=== PATIENT | female | born 1965 | race African-American/Black ===

== ENCOUNTER 2016-09-16 01:49 | Emergency (ER) | payer MEDICAID ==
[~2016-09-16] VITALS: Ht 157.5 cm; Wt 72.6 kg
[~2016-09-16 01:49] MED LIST: ASTHMA INHALER; FLUO90CA4 PO
[2016-09-16] MEDS: ALBUTEROL FS 2.5 MG/0.5 ML VIAL.NEB NEB ONE ×2 (02:07→02:49)
[2016-09-16] MEDS ORDERED: ALBUTEROL FS 2.5 MG/0.5 ML VIAL.NEB ONE (02:07)
[2016-09-16] MEDS ORDERED: DEXAMETHASONE SOD PHOSPHATE 10 MG/ML VIAL ONE (02:08)
[2016-09-16] MEDS: DEXAMETHASONE SOD PHOSPHATE 4 MG/ML VIAL IM ONE (02:16)
--- NOTE | 2016-09-16 02:16 | NUR ---
PT C/O SOB AND DIFFICULTY BREATHING X 3 DAYS, PT IS A/OX4, PT STATES SHE HAS BEEN TRYING TO DO BREATHING TREATMENTS AT HOME BUT NOT WORKING, PT ON MONITOR, RT AT BEDSIDE, PT IN GOWN, MADE AWARE WILL CONTINUE TO MONITOR.
[2016-09-16] MEDS ORDERED: ALBUTEROL FS 2.5 MG/3 ML VIAL.NEB ONE (02:52)
[2016-09-16 03:36] VITALS: BP 140/90
== END 2016-09-16 03:37 | disposition home or self-care (01) ==
LOC: ER 01:54
DX: J45.909 Unspecified asthma, uncomplicated (principal); F41.9 Anxiety disorder, unspecified; Z88.1 Allergy status to other antibiotic agents; F17.210 Nicotine dependence, cigarettes, uncomplicated
CPT/HCPCS: 94640 ×2; 99284; A4606; J1100; Z7610

== ENCOUNTER 2016-10-23 03:14 | Inpatient (IN) | payer MEDICAID ==
[2016-10-23] VITALS (34 sets, daily range): BP systolic 119–184; BP diastolic 60–107
[~2016-10-23] VITALS: Ht 157.5 cm; Wt 73.9 kg
--- NOTE | 2016-10-23 03:20 | NUR ---
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 Per patient she went to urgent care earlier today and was given with albuterol. Upon arriaval to er, patient is aaox4, dyspneic, tachypneic, wheezing heard on teofilo lungs, used of accessory muscles for breathing noted. Patient appears anxious. Maintained patent airway. Kept hob elevated. initiated comfort measures. Dr Lyn at bedside for eval.
[2016-10-23] MEDS ORDERED: DEXAMETHASONE SOD PHOSPHATE 10 MG/ML VIAL ONE (03:40)
[2016-10-23] MEDS ORDERED: ALBUTEROL FS 2.5 MG/3 ML VIAL.NEB ONE ×2 (03:43→04:25)
[2016-10-23 03:56] LABS: BASOPHILS % (AUTO) 0.5 % (0.0-2.0); EOSINOPHILS # (AUTO) 0.5 /CMM (0.0-0.7); EOSINOPHILS % (AUTO) 6.9 % (0.0-6.0); HEMATOCRIT 41 % (33-45); HEMOGLOBIN 13.3 g/dL (11.5-14.8); LYMPHOCYTES # (AUTO) 2.8 /CMM (0.8-4.8); LYMPHOCYTES % (AUTO) 36.3 % (20.0-44.0); MEAN CORPUSCULAR HEMOGLOBIN 29 PG (26.0-33.0); MEAN CORPUSCULAR HGB CONC 33 g/dl (31.0-36.0); MEAN CORPUSCULAR VOLUME 90 fL (82-100); MONOCYTES # (AUTO) 0.6 /CMM (0.1-1.30); MONOCYTES % (AUTO) 7.3 % (2.0-12.0); NEUTROPHILS # (AUTO) 3.7 /CMM (1.8-8.9); PLATELET COUNT (AUTO) 373 /CMM (150-450); RDW COEFFICIENT OF VARIATION 14.1 (11.5-15.0); RED BLOOD CELL COUNT(AUTO) 4.55 MIL/uL (4.0-5.2); WHITE BLOOD COUNT (AUTO) 7.6 K/uL (4.3-11.0)
[2016-10-23] MEDS ORDERED: ALBUTEROL FS 2.5 MG/3 ML VIAL.NEB CONTNEB ONE ×3 (04:00→04:30)
[2016-10-23] MEDS ORDERED: DEXAMETHASONE SOD PHOSPHATE 4 MG/ML VIAL IM ONE (04:00)
[2016-10-23 04:04] LABS: CALCIUM, SERUM 8.9 mg/dL (8.5-10.1); CREATININE 0.9 mg/dL (0.6-1.3); POTASSIUM 3.9 mmol/L (3.5-5.1)
[2016-10-23] MEDS ORDERED: IV SET PRIMARY 1 EA INFUS.SET MC ONE (04:23)
[2016-10-23] MEDS ORDERED: Magnesium 1GM/D5W 100ML PREMIX 200 ML IV ONE (04:23)
[2016-10-23] MEDS ORDERED: Magnesium 1 GM/2 ML VIAL IV ONE (04:30)
--- NOTE | 2016-10-23 04:35 | NUR ---
Magnesium 2gm infusing to right ac g18 per dr Lyn's order with ongoing albuterol nebulization.
--- NOTE | 2016-10-23 04:47 | NUR ---
Placed patient on rescue bipap by RT, settings as follows 15/5, fio2 30%, rate 14. Patient adore bibap well and reported to "breathing better."
[2016-10-23 04:49] LABS: ABG BASE EXCESS -2.4 mmol/L; ABG PCO2 43.4 mmHg (35.0-45.0); ABG PH 7.347 (7.350-7.450); ABG PO2 25.1 mmHg (75.0-100.0); ABG TOTAL HEMOGLOBIN 14.7 G/dL (12.0-16.0); MetHb 0.5 % (0.0-1.5); O2Hb 43.9 % (94.0-97.0); SITE, ABG Left Radial; VENT MODE, BG RA
[2016-10-23] MEDS ORDERED: FLUO20TA28 PO (04:54)
[2016-10-23] MEDS ORDERED: FLUT1DIS INH (04:55)
[2016-10-23] MEDS ORDERED: FLUT1BLS IH (04:55)
--- NOTE | 2016-10-23 05:02 | NUR ---
pt placed on bipap on noted setting. pt is awake and alert. breath sounds are audible wheezes. bipap is plugged in red outlet and alarms are set and audible. will continue to monitor Addendum: 10/23/16 at 0507 by YOLETTE FARR RT Amended: Links added.
[2016-10-23] MEDS ORDERED: ALBUTEROL FS 2.5 MG/0.5 ML VIAL.NEB NEB SCH (05:30)
[2016-10-23] MEDS ORDERED: IPRATROPIUM NEB FS 0.5 MG/2.5 ML AMPUL.NEB NEB SCH (05:30)
[2016-10-23] MEDS ORDERED: ONDANSETRON HCL/PF 4 MG/2 ML VIAL IVP PRN (05:30)
[2016-10-23] MEDS ORDERED: ACETAMINOPHEN 650 MG/SUPP.RECT RC PRN (05:30)
--- NOTE | 2016-10-23 05:43 | NUR ---
Report given to Joana CROFT for matias.
--- NOTE | 2016-10-23 05:45 | NUR ---
started a second IV access on the lac g18, with good blood return. Taped securely.
[2016-10-23] MEDS ORDERED: methylPREDNISolone SOD SUCC 125 MG/2ML VIAL ONE (05:46)
[2016-10-23] MEDS ORDERED: GUAIFENESIN LA 600 MG TABLET.SA PO ONE (05:46)
[2016-10-23] MEDS ORDERED: AZITHROMYCIN 500 MG VIAL ONE (05:51)
--- NOTE | 2016-10-23 05:56 | NUR ---
Transported patient to ICU rm 262 via als protocol, no incident noted.
[2016-10-23] MEDS ORDERED: IV SET PRIMARY PUMP SET 1 EA INFUS.SET MC ONE (05:59)
[2016-10-23] MEDS ORDERED: IV D5W 250 ML IV ONE (05:59)
[2016-10-23] MEDS: GUAIFENESIN LA 600 MG TABLET.SA PO SCH ×3 (06:03→20:53)
[2016-10-23] MEDS: methylPREDNISolone SOD SUCC 125 MG/2ML VIAL IV SCH ×4 (06:03→23:14)
[2016-10-23] MEDS: AZITHROMYCIN 500 MG in IV D5W 250 ML IV SCH (06:07)
--- NOTE | 2016-10-23 06:35 | NUR ---
RN:ICU: PT RECEIVED FROM ER FOR ASTHMA EXACERBATION. PER PT SHE VISITED THE URGENT CARE LAST NIGHT AND RECEIVED BREATHING TX, WITH RELIEVE BUT ONCE SHE RETURNED HOME CONTINUED TO HAVE INCREASING SOB. PER PT SHE HAS BEEN PREVIOUSLY INTUBATED FOR ASTHMA EXACERBATIONS AND AGREES TO INTUBATION IF SHE REQUIRES IT AGAIN DURING THIS HOSPITALIZATION. PT CURRENTLY TOLERATING BIPAP SETTINGS 15/5 RATE 14 FIO2 100%. PT HAS TWO PATENT IV SITE ON BILATERAL AC. PT RECEIVING AZITHROMYCIN PER MD ORDERS. PT CONTINUES TO HAVE SOB AND RHONCHI/WHEEZING THROUGHOUT LUNGS. PT EDUCATED REGARDING POC. DR CRABTREE AT THE BEDSIDE ASSESSING PT. WILL CONTINUE TO MONITOR CLOSELY.
--- NOTE | 2016-10-23 06:58 | NUR ---
RN:ICU: PT COMPLAINING OF LEFT ARM PAIN, DENIES CP OR PRESSURE. MD MADE AWARE OF PT CHANGE IN CONDITION. TROP AND EKG ORDERED. RT AT THE BEDSIDE PERFORMING EKG, LAB NOTIFIED TO DRAW TROP.
--- NOTE | 2016-10-23 07:47 | NUR ---
PT RECEIVED ON BIPAP WITH FF. SETTINGS: IPAP 15/ EPAP 5, RATE 14, FIO2 30%. AWAKE AND ALERT PT, PLACED INTO NASAL CANNULA @ 2LPM O2 FLOW. PT LOOKS COMFORTABLE ON NASAL CANNULA. Addendum: 10/23/16 at 0751 by LELO CRESPO RT Amended: Links added.
--- NOTE | 2016-10-23 08:00 | NUR ---
ICU/RN INITIAL NOTES,AM RECEIVED PT ON BIPAP WITH SETTINGS ORDERED BY MD, PT TAKEN OFF BIPAP AND PUT ON NASAL CANULA, TOLERATING WELL, MAINTAINING 02 SAT >95%, NO EXCESSIVE SOB NOTED. PT ALERT, AWAKE, ORIENTED TO PERSON PLACE AND TIME. FOLLOWS COMMANDS. PT ON TELE, SINUS. CURRENTLY NPO, WILL CONTINUE TO FURTHER ASSESS FOR ADDITIONAL DIET NEEDS. PIV'S PATENT AND INTACT, NO S/S IF INFECTION OR INFILTRATION NOTED. SKIN INTACT. ALL NEEDS WILL BE MET, SAFETY MEASURES TAKEN, BED IN LOW POSITION, AND SIDE RAILS UP, CALL LIGHT WITHIN REACH. WILL CONTINUE TO MONITOR.
[2016-10-23] MEDS ORDERED: FLUTICASONE/SALMETEROL DISKUS IH SCH (09:00)
[2016-10-23] MEDS: FLUOXETINE HCL 20 MG CAPSULE PO SCH (09:18)
[2016-10-23] MEDS: PANTOPRAZOLE 40 MG VIAL IV SCH (09:18)
[2016-10-23 09:22] LABS: ABG BASE EXCESS -2.5 mmol/L; ABG OXYGEN SATURATION 95.4 % (92.0-98.5); ABG PH 7.391 (7.350-7.450); ABG PO2 81.7 mmHg (75.0-100.0); AaDO2 74.3 mmHg; COHb 0.9 % (0.5-1.5); MetHb 0.8 % (0.0-1.5); O2Hb 93.8 % (94.0-97.0); SITE, ABG Left Radial; VENT MODE, BG NASAL CANNULA
--- NOTE | 2016-10-23 12:00 | NUR ---
ICU/RN: DR. ROJAS AT BEDSIDE. PT ASSESSED. DIET ORDERS RECEIVED WILL CARRY OUT.
[2016-10-23] MEDS: ALBUTEROL FS 2.5 MG/0.5 ML VIAL.NEB NEB SCH ×3 (15:40→23:19)
[2016-10-23] MEDS: IPRATROPIUM NEB FS 0.5 MG/2.5 ML AMPUL.NEB NEB SCH ×3 (15:41→23:19)
--- NOTE | 2016-10-23 19:28 | NUR ---
ICU/RN: ENDING NOTES,AM REPORT ENDORSED TO NIGHT NURSE FOR CONTINUATION OF CARE. ALL NEEDS MET. PT ON 2LITERS NASAL CANULA, NO DISTRESS. BEDSIDE COMMODE AT BEDSIDE. VENOUS DOPPLER DONE AND NEGATIVE. ALL NEEDS MET. SAFETY MEASURES TAKEN, BED IN LOW POSITION, SIDE RAILS UP, CALL LIGHT WITHIN REACH. VSS.
--- NOTE | 2016-10-23 20:00 | NUR ---
VINYL TOP INSTALLER RECEIVED PT ON ROOM AIR AND IN BED. PT DENIES ANY SOB OR RESP DISTRESS. SATURATING WELL ON ROOM AIR. WILL REASSESS THROUGHOUT THE NIGHT FOR NEED OF O2. PT DENIES ANY PAIN AT THIS TIME. RAC AND LAC IV'S INTACT AND PATENT. CALL LIGHT WITHIN REACH. BED ALARM ON. INSTRUCTED PT TO USE CALL LIGHT FOR ASSISTANCE TO BSC.
[2016-10-24] VITALS (12 sets, daily range): BP systolic 96–155; BP diastolic 42–94
--- NOTE | 2016-10-24 00:15 | NUR ---
EDGE FINISHER PT IS REQUESTING PROZAC , HER USUAL HOME MEDS. MED RECON IS STILL NOT DONE. CALLED PASSENGER CAR CLEANING SUPERVISOR LEYDA Dwyer MD GAVE ORDER TO CONT PROZAC ORDER AND START TONIGHT. Addendum: 10/24/16 at 0020 by IRIS STEINBERG RN NEW PROZAC ORDERED STOPPED. ORDER IS A DUPLICATE .PT WAS ALREADY GIVEN PROZAC THIS AM WILL NOT GIVE PROZAC AT THIS TIME.
[2016-10-24] MEDS ORDERED: FLUOXETINE HCL 20 MG/5 ML UDC PO SCH (00:30)
[2016-10-24] MEDS: ALBUTEROL FS 2.5 MG/0.5 ML VIAL.NEB NEB SCH ×2 (03:05→08:27)
[2016-10-24] MEDS: IPRATROPIUM NEB FS 0.5 MG/2.5 ML AMPUL.NEB NEB SCH ×2 (03:05→08:26)
--- NOTE | 2016-10-24 04:00 | NUR ---
STOCK DIGGER PT C/O PAIN IN LAC IV. REMOVED LAC IV AND INSERTED LEFT WRIST IV.
[2016-10-24 05:07] LABS: BASOPHILS % (AUTO) 0.1 % (0.0-2.0); HEMATOCRIT 41 % (33-45); HEMOGLOBIN 13.3 g/dL (11.5-14.8); LYMPHOCYTES # (AUTO) 0.8 /CMM (0.8-4.8); LYMPHOCYTES % (AUTO) 5.7 % (20.0-44.0); MEAN CORPUSCULAR HEMOGLOBIN 29 PG (26.0-33.0); MEAN CORPUSCULAR HGB CONC 33 g/dl (31.0-36.0); MEAN CORPUSCULAR VOLUME 90 fL (82-100); MONOCYTES # (AUTO) 0.4 /CMM (0.1-1.30); MONOCYTES % (AUTO) 3.1 % (2.0-12.0); NEUTROPHILS # (AUTO) 13.1 /CMM (1.8-8.9); NEUTROPHILS % (AUTO) 91.1 % (43.0-81.0); PLATELET COUNT (AUTO) 407 /CMM (150-450); RDW COEFFICIENT OF VARIATION 13.9 (11.5-15.0); RED BLOOD CELL COUNT(AUTO) 4.53 MIL/uL (4.0-5.2); WHITE BLOOD COUNT (AUTO) 14.4 K/uL (4.3-11.0)
[2016-10-24 05:23] LABS: ALBUMIN 3.9 g/dL (3.4-5.0); BILIRUBIN,TOTAL 0.3 mg/dL (0.2-1.0); CALCIUM, SERUM 9.4 mg/dL (8.5-10.1); POTASSIUM 4.3 mmol/L (3.5-5.1); TOTAL PROTEIN, SERUM 7.7 g/dL (6.4-8.2)
[2016-10-24] MEDS: AZITHROMYCIN 500 MG in IV D5W 250 ML IV SCH (05:35)
[2016-10-24] MEDS: methylPREDNISolone SOD SUCC 125 MG/2ML VIAL IV SCH (05:35)
--- NOTE | 2016-10-24 06:15 | NUR ---
MANAGER STORY PT DENIES ANY SOB OR RESP DISTRESS AT THIS TIME. PT WAS ON ROOM AIR ALL NIGHT AND TOLERATED WELL. PT DID NOT NEED TO O2 . BOTH IV SITES INTACT AND PATENT. PT DOES NOT WANT LINENS CHANGED AT THIS TIME. BED ALARM ON AND SIDE RAILS UP X2.
--- NOTE | 2016-10-24 07:10 | NUR ---
ICU INITIAL NOTES RECEIVED PT IN BED, ASLEEP, EASY TO AROUSE, ABLE TO MAKES NEEDS KNOWN, PT IS A/O X4, PT IS ON RA, SATING WELL, NO S/S OF RESP.DISTRESS OR SOB NOTED AT THIS TIME, PT IS ON TELE MONITOR SHOWING SR 80'S, PT IS AMBULATORY, PT HAS RAC # 18G,SL, C/D/I/PATENT, FLUSHING WELL, L WRIST # 22G, SL, C/D/I/PATENT, FLUSHING WELL, NO S/S OF INFECTION/ INFILTRATION NOTED AT THIS TIME, BEDSIDE COMMODE IS AT BEDSIDE, ALL SAFETY MEASURES IN PLACE AT ALL TIMES, CALL LIGHT WITHIN EASY REACH, WILL MONITOR PT CLOSELY
[2016-10-24] MEDS: FLUOXETINE HCL 20 MG CAPSULE PO SCH (08:15)
[2016-10-24] MEDS: PANTOPRAZOLE 40 MG VIAL IV SCH (08:15)
[2016-10-24] MEDS: GUAIFENESIN LA 600 MG TABLET.SA PO SCH (08:15)
[2016-10-24] MEDS ORDERED: LEVO500T15 PO (09:05)
[2016-10-24] MEDS ORDERED: PRED20TA PO (09:05)
--- NOTE | 2016-10-24 09:05 | NUR ---
RN NOTES DR. CHRISTOPHER AT BEDSIDE, PT WANTS TO GO HOME, PT WILL BE D/C TODAY
--- NOTE | 2016-10-24 10:28 | NUR ---
RN NOTES DR. CHRISTOPHER NOTIFIED REGARDING D/C RX, CHANGED FROM LEVAQUIN TO ZITHROMAX
--- NOTE | 2016-10-24 11:21 | NUR ---
GLAZE GRINDER NOTES RECEIVED ORDERS FOR D/C, ALL INSTRUCTIONS GIVEN, ALL QUESTIONS AND CONCERNS ANSWERED, RX GIVEN TO PT, PT REMAINED STABLE DURING SHIFT, RX GIVEN TO PT, DISCHARGE PAPERWORK SIGNED AND GIVEN TO PT, ALL BELONGINGS WITH PT, BELONGINGS LIST SIGNED, PT SKIN REMAINED INTACT, NO PHOTOS REQUIRED, IVS REMOVED, WRIST BAND REMOVED, PT KEPT CLEAN AND DRY, ALL MEDICATIONS GIVEN, ALL ORDERS CARRIED OUT, FRIEND AT BEDSIDE, PT WILL BE GOING HOME, PT LEFT VIA WHEELCHAIR TO AWAITING CAR.
== END 2016-10-24 11:20 | disposition home or self-care (01) | DRG 140 ==
LOC: ER 03:17 → ICU 05:20
PROVIDERS: ADMIT Internal Medicine; ATTEND Internal Medicine
PROC: 5A09357 Assistance with Respiratory Ventilation, Less than 24 Consecutive Hours, Continuous Positive Airway Pressure (ICD-10-PCS; principal; 2016-10-23)
DX: J44.1 Chronic obstructive pulmonary disease with (acute) exacerbation (principal); J96.01 Acute respiratory failure with hypoxia; J45.901 Unspecified asthma with (acute) exacerbation; F41.9 Anxiety disorder, unspecified; F17.200 Nicotine dependence, unspecified, uncomplicated; Z90.10 Acquired absence of unspecified breast and nipple
CPT/HCPCS: 36415; 36600; 70220-TC; 71010-TC; 80048-TC; 80053-TC; 83735-TC; 84100-TC; 84484-TC; 85025-TC; 87081-TC; 93970-TC; A4606; C9113; J0456; J1100; J2930; J3475; J7060; Z7610

== ENCOUNTER 2017-04-24 01:36 | Emergency (ER) | payer MEDICAID ==
[~2017-04-24] VITALS: Ht 165.1 cm; Wt 81.6 kg
[~2017-04-24 01:36] MED LIST changes: +FLUO20TA28 PO; -FLUO90CA4 PO; +FLUT1BLS IH; +FLUT1DIS INH; +LEVO500T15 PO; +PRED20TA PO
--- NOTE | 2017-04-24 01:40 | NUR ---
PT BIB AMBULATORY TO ER BED 4. PT STATES SHE HAD AN ASTHMA ATTACK AT HOME AND INHALER WAS NOT WORKING. PT PLACED IN GOWN AND ON VS/RESOURCE MANAGER. VSS/RESP SHALLOW AND TACHYPNEA WITH PAIN ON INSPIRATION/NAD NOTED/SKIN WARM AND DRY/AOX3/DENIES N/V/D. PT O2 SAT 97% RA. AT BEDSIDE FOR EVAL.
--- NOTE | 2017-04-24 01:45 | NUR ---
PT MEDICATED PER MD ORDERS.
[2017-04-24] MEDS ORDERED: DEXAMETHASONE SOD PHOSPHATE 10 MG/ML VIAL ONE (01:47)
[2017-04-24] MEDS ORDERED: ALBUTEROL FS 2.5 MG/3 ML VIAL.NEB ONE ×3 (01:51→03:49)
--- NOTE | 2017-04-24 01:59 | NUR ---
RT AT BEDSIDE FOR FELIX VAZQUEZ
[2017-04-24] MEDS ORDERED: ALBUTEROL FS 2.5 MG/3 ML VIAL.NEB NEB ONE ×3 (02:00→04:00)
[2017-04-24] MEDS ORDERED: DEXAMETHASONE SOD PHOSPHATE 10 MG/ML VIAL IV ONE (02:00)
--- NOTE | 2017-04-24 02:48 | NUR ---
PT STATES SHE FEELS BETTER AFTER NEB TX. VSS.
--- NOTE | 2017-04-24 03:47 | NUR ---
RT AT BEDSIDE FOR NEB TX PER MD ORDERS.
--- NOTE | 2017-04-24 04:39 | NUR ---
Patient discharged to home in stable condition. Written and verbal after care instructions given. Patient verbalizes understanding of instruction. ambulatory with a steady gait noted. pt aaox4 no acute distress noted, resp even and unlabored. pt s/o at bedside to take pt home.
[2017-04-24 04:40] VITALS: BP 137/63
== END 2017-04-24 04:41 | disposition home or self-care (01) ==
LOC: ER 01:37
DX: J45.901 Unspecified asthma with (acute) exacerbation (principal); F17.200 Nicotine dependence, unspecified, uncomplicated; Z91.19 Patient's noncompliance with other medical treatment and regimen; Z88.1 Allergy status to other antibiotic agents
CPT/HCPCS: 94640 ×3; 99285; A4606; J1100; Z7610

== ENCOUNTER 2018-11-05 09:43 | Emergency (ER) | payer MEDICAID ==
[~2018-11-05] VITALS: Ht 154.9 cm; Wt 67.6 kg
[~2018-11-05 09:43] MED LIST changes: -LEVO500T15 PO; +LEVO500T75 PO
[2018-11-05 09:53] VITALS: BP 166/92
--- NOTE | 2018-11-05 09:53 | NUR ---
PT BIB SELF C/O SOB, HX OF ASTHMA, PT IS AAOX4, NOTED RESPIRATORY DISTRESS, HOOKED TO CONTAINERS SALES REPRESENTATIVE, KEPT RESTED AND COMFORTABLE, WILL CONTINUE TO MONITOR.
[2018-11-05] MEDS ORDERED: predniSONE 20 MG TABLET ONE (09:59)
[2018-11-05] MEDS ORDERED: IPRATROPIUM NEB FS 0.5 MG/2.5 ML AMPUL.NEB NEB ONE ×2 (10:00→11:00)
[2018-11-05] MEDS ORDERED: ALBUTEROL FS 2.5 MG/3 ML VIAL.NEB NEB ONE ×2 (10:00→11:00)
[2018-11-05] MEDS ORDERED: predniSONE 20 MG TABLET PO ONE (10:00)
--- NOTE | 2018-11-05 10:07 | NUR ---
RT AT BEDSIDE FOR BREATHING TREATMENT.
[2018-11-05] MEDS ORDERED: ALBUTEROL FS 2.5 MG/3 ML VIAL.NEB ONE (11:02)
[2018-11-05] MEDS ORDERED: IPRATROPIUM NEB FS 0.5 MG/2.5 ML AMPUL.NEB ONE (11:02)
--- NOTE | 2018-11-05 12:41 | NUR ---
Patient discharged to home in stable condition. Written and verbal after care instructions given. Patient verbalizes understanding of instruction.
== END 2018-11-05 12:42 | disposition home or self-care (01) ==
LOC: ER 09:43
DX: J45.909 Unspecified asthma, uncomplicated (principal); F17.200 Nicotine dependence, unspecified, uncomplicated; Z98.51 Tubal ligation status; Z88.1 Allergy status to other antibiotic agents

== ENCOUNTER 2018-11-05 19:44 | Emergency (ER) | payer MEDICAID ==
[~2018-11-05] VITALS: Ht 157.5 cm; Wt 67.6 kg
--- NOTE | 2018-11-05 20:45 | NUR ---
AMBULATORY TO THE BED. BREATHING EVENLY. C/O SOB. VSS, AFEBRILE. O2 SAT96% ON R/A. REPORTED " WHITE PRODUCTIVE COUGH " HX OF ASTHMA. TAKING PREDNISONE AND PROAIR AT HOME. PLACED ON MONITOR, WILL CONT TO MONITOR,
[2018-11-05] MEDS ORDERED: ALBUTEROL FS 2.5 MG/3 ML VIAL.NEB ONE ×2 (20:52→21:41)
[2018-11-05] MEDS ORDERED: IPRATROPIUM NEB FS 0.5 MG/2.5 ML AMPUL.NEB ONE ×2 (20:52→21:41)
--- NOTE | 2018-11-05 20:54 | NUR ---
RT AND ECG TECH AT THE BED SIDE
[2018-11-05] MEDS ORDERED: ALBUTEROL FS 2.5 MG/3 ML VIAL.NEB NEB ONE ×2 (21:00→21:30)
[2018-11-05] MEDS ORDERED: IPRATROPIUM NEB FS 0.5 MG/2.5 ML AMPUL.NEB NEB ONE ×2 (21:00→21:30)
--- NOTE | 2018-11-05 21:17 | NUR ---
DONE WIHT BREATHING TX. REPORTED FEELING BETTER AND ABLE TO COUGH OUT SOME STUFF. O2 SAT:99% ON R/A. SOME WHEEZING BILAT. WILL CONT TO MONITOR,
--- NOTE | 2018-11-05 21:34 | NUR ---
CALLED RT FOR BREATHING TX
--- NOTE | 2018-11-05 22:05 | NUR ---
DONE WITH 2ND BREATHING TX. REPORTED FEELING ALOT BETTER . LUNG SOUNDS WITH SOME WHEEZING BUT MUCH BETTER, O2 SAT99% ON R/A. WILL CONT TO MONITOR ,
--- NOTE | 2018-11-05 22:50 | NUR ---
Patient discharged to home in stable condition. Written and verbal after care instructions given. Patient verbalizes understanding of instruction.
[2018-11-05 22:59] VITALS: BP 148/89
== END 2018-11-05 22:50 | disposition home or self-care (01) ==
LOC: ER 19:48
DX: J45.909 Unspecified asthma, uncomplicated (principal); F17.200 Nicotine dependence, unspecified, uncomplicated; Z88.1 Allergy status to other antibiotic agents; Z98.890 Other specified postprocedural states; Z79.899 Other long term (current) drug therapy
CPT/HCPCS: 71045-TC